=== PATIENT | female | born 1985 | race Caucasian/White ===

== ENCOUNTER 2019-12-18 01:18 | Outpatient (CLI) | payer OTHER, SELFPAY ==
[2019-12-18 10:25] LABS: C-Reactive Protein < 0.05 mg/dL (0.0-0.3)
[2019-12-18 10:33] LABS: ESR 11 mm/hr (0-20)
== END 2019-12-18 01:38 ==
PROVIDERS: PCP Family Medicine; Visit Provider Student in an Organized Health Care Education/Training Program
DX: M00.9 Pyogenic arthritis, unspecified (principal)
CPT/HCPCS: 36415; 85652; 86140

== ENCOUNTER 2020-01-28 03:34 | Outpatient (CLI) | payer OTHER, SELFPAY ==
[2020-01-29 17:43] LABS: SARS-CoV-2 RNA Not Detected (NotDetected); SARS-CoV-2 RNA Source Nasal/Nares
== END 2020-01-28 03:54 ==
PROVIDERS: PCP Family Medicine; Visit Provider Student in an Organized Health Care Education/Training Program
DX: Z01.818 Encounter for other preprocedural examination (principal); S73.199A Other sprain of unspecified hip, initial encounter
CPT/HCPCS: U0003

== ENCOUNTER 2020-01-31 07:13 | Day surgery (SDC) | payer OTHER, SELFPAY ==
[2020-01-31] VITALS (11 sets, daily range): BP systolic 106–127; BP diastolic 61–82; PULSE 65–74; RESP 14–22; TEMP 36.2–36.7; O2SAT 94–100
[2020-01-31] MEDS: Lactated Ringers 1,000 ML 100 ML IV (07:39)
[2020-01-31] MEDS: Bupivacaine 0.25% Pres-Free 30 ML VIAL ×3 (09:56→11:09)
[2020-01-31] MEDS: ceFAZolin 2 GM/50 ML BAG IVPB (10:32)
--- NOTE | 2020-01-31 13:41 | DI.RAD_ITS ---
EXAM: XR HIP LT IN OR CLINICAL HISTORY: left hip arthroscopy TECHNIQUE: 2D and realtime digital imaging was performed. CONTRAST MATERIAL: Refer to procedure report. COMPARISON: No exams were available for comparison FINDINGS: Fluoroscopy was provided for Dr. Thompson during the performance of a left hip arthroscopy. Please ref er to the procedure report for complete details. Fluoro time: 248.2 seconds IMPRESSION: RADIATION DOSE DELIVERED:
--- NOTE | 2020-01-31 14:01 | W.PM.DSUDISC ---
Discharge Plan Disposition Patient Disposition: HOME Condition: Stable Discharge Details Reason For Visit: Left hip surgery Attending Provider: Harpreet Thompson Primary Care Provider: Dale Valladares Home Meds and New Rx's Prescriptions: New aspirin 81 mg tablet,delayed release (DR/EC) 81 mg PO DAILY 14 Days Qty: 14 RF: 0 naproxen 250 mg tablet 250 - 500 mg PO BID PRN (Reason: Moderate pain or swelling) Qty: 60 RF: 0 ondansetron 4 mg tablet,disintegrating 4 mg PO Q6H PRN (Reason: nausea or vomiting) Qty: 5 RF: 0 oxycodone 5 mg tablet 5 - 10 mg PO Q4H PRN (Reason: moderate to severe pain) Qty: 22 RF: 0 Discharge Instructions Additional Instructions: Surgery: Left hip arthroscopy with labral debridement and femoroplasty Activity: Protected weightbearing (50%) with crutches for 6 weeks. May rest foot on ground when standing. Avoid deep hip flexion past 90 degrees for 8 weeks. No cutting, pivoting, or sports for about 2-3 months. A physical therapy prescription will be provided separately in the office at follow-up. Prescriptions: Aspirin 81 mg take 1 daily to prevent a blood clot for 2 weeks Naproxen 250 mg take 1-2 every 12 hours with a meal as needed for moderate pain Oxycodone 5 mg take 1-2 every 4-6 hours as needed for severe pain You may use [id number] Tylenol (acetaminophen) as needed for mild pain. These pain medications may be taken all at once or in different combinations as needed. Also, recommend Colace (docusate) as a stool softener as surgery and pain medicine cause constipation. Dressings: Leave dressing in place for 2-3 days. May then remove and leave open to air or cover incisions with Band-Aids. May shower after 5 days. Follow-up: 10-[address] Thompson (02/12/20 at 9:30 AM) Let us know right away if you develop any redness, drainage, fevers, chest pain, or trouble breathing. Do not drink alcohol or drive for at least 24 hours after anesthesia. Please call the office during business hours with any questions or concerns. Referrals: Harpreet Thompson MD [ [facility]] - Discharge Orders Discharge Orders: Discharge Order (Routine); Ordered 01/31/20 Ordered By: Harpreet Thompson DS: Diagnosis Discharge Diagnosis (1) Labral tear of left hip joint: Status: Acute (2) Femoral acetabular impingement: Status: Acute
--- NOTE | 2020-01-31 14:11 | ROE_ITS ---
Date of service: 01/31/20 Time of Service: 12:15 Operative Note Operative Note DATE OF PROCEDURE: 01/31/20 PRE-OP DIAGNOSIS: 1. Left hip labral tear 2. Left hip femoral acetabular impingement POST-OP DIAGNOSIS: same PROCEDURE: 1. Left hip arthroscopy with labral debridement, CPT #47286 2. Arthroscopic femoroplasty, CPT #03627 SURGEON: Harpreet Thompson PATIENT RELATIONS COORDINATOR: Gela Drew ANESTHESIA: GETA, regional (SAHARA block) and local ESTIMATED BLOOD LOSS: 10 PATHOLOGY: none sent TOURNIQUET TIME: 60 COMPLICATIONS: None Patient was transported to: PACU Patient's condition: stable Implants: None Indications: Please see complete medical record for details. Findings: Significant anterior lateral labral thinning and fraying. Scarring and coalescence with the anterior capsule, which was thickened. Relatively preserved femoral head and acetabular articular cartilage throughout. Significant anterior, medial, and foveal synovitis. Only mild cartilage thinning of the femoral head near the cam lesion. Approximately 5 x 5 x 5 mm bone cyst of the superior anterolateral femoral neck also near the cam lesion. Procedure Description: In the operating room, general and regional anesthesia were induced. The patient was positioned supine on the [place] table. All bony prominences were well-padded. Preoperative antibiotics were administered. Under sterile technique with fluoroscopic guidance a long spinal needle and moderate traction were used to confirm appropriate distraction of the hip joint releasing the suction seal and perform an air arthrogram. Traction was rel eased. The the left hip and thigh were prepped and draped in the usual sterile fashion. The correct patient, procedure, and side of the procedure were all verified prior to incision. Traction was resumed at times. The patient's prior anterior and anterolateral incisions were marked. The anterior lateral incision was used and once to place an 18-gauge spinal needle atraumatically into the hip joint under fluoroscopic guidance. The Nitinol wire was introduced followed by sequential dilators and the camera. Arthroscopy was started dry. Location confirmed to be off the cartilage and not between the labrum and acetabulum. Modified anterior portal was then established using fluoroscopic guidance and needle visualized once the anterolateral portal was redirected in the joint cleared with fluid. This portal was sequentially dilated and a 7 mm cannula introduced. A probe was used with camera to complete diagnostic arthroscopy with relevant findings listed above. The anterior lateral labral tear remnant with fraying was probed and there was any significant tear for repair so was debrided to a stable margin with a mechanical shaver. Anterior lateral and central synovitis was also debrided. Articular cartilage left intact. The viewing and working portals were then switched completing the diagnostic arthroscopy and confirming no additional work to be done in the central compartment. Hip was drained of arthroscopic fluid. The cannula and instruments were removed from the hip and the traction was let down at 60 minutes. The boot leg/foot holders were loosened. The hip was brought into moderate flexion and the arthroscope in the anterolateral portal redirected to the peripheral compartment using fluoroscopic guidance. The modified anterior portal was redirected in a similar fashion. Shaver was used to clear soft tissue as well as the radiofrequency ablator followed by the banana blade completing a limited small capsulotomy over the CAM lesion site. A diagnostic arthroscopy of the peripheral compartment was completed. The paula was then used to perform the femoroplasty resecting excess bone from the articular margin down the femoral neck and debriding with a shaver a bone cyst in this region. Using multiple fluoroscopic views in extension internal rotation, neutral, and external rotation as well as flexion and internal rotation the appropriate amount of bone was removed. There is no more engaging lesion with hip brought into deep flexion and internal rotation. The hip was drained of arthroscopic fluid. 20 cc of 0.25% bupivacaine containing epinephrine was infiltrated about both portal sites followed by closure with 3-0 Monocryl in a buried interrupted fashion. Mastisol Steri-Strips, Xeroform, dry for 4 gauze, and Tegaderms were applied. The patient awoke from anesthesia without complication and was transferred to the recovery room in a stable condition. Abdominal and thigh compartments remain soft. Dorsalis pedis pulse was 2+ with a regular rate and rhythm.
[2020-01-31] MEDS: EPINEPHrine 1 MG/ML AMP pres-free (14:24)
[2020-01-31] MEDS: ACETAMINOPHEN 1,000 MG/100 ML BTL 400 MG IVPB (14:24)
[2020-01-31] MEDS: Normal Saline Flush 10 ML SYR IV (14:38)
[2020-01-31] MEDS: HYDROmorphone 2 MG/ML VIAL IVP (14:38)
== END 2020-01-31 16:30 | disposition home or self-care (01) ==
PROVIDERS: PCP Family Medicine; Visit Provider Student in an Organized Health Care Education/Training Program
PROC: (CPT 29860; principal; 2020-01-31 09:00)
DX: S73.192A Other sprain of left hip, initial encounter (principal); M25.852 Other specified joint disorders, left hip; X58.XXXA Exposure to other specified factors, initial encounter; M65.88 Other synovitis and tenosynovitis, other site; M85.48 Solitary bone cyst, other site
CPT/HCPCS: 29914; 29862; 76000; 76942; 73501; J0131; J0171; J0690; J1100; J1885; J2001; J2405; J2704; J3475

== ENCOUNTER 2022-06-16 07:34 | Day surgery (SDC) | payer OTHER, SELFPAY ==
--- NOTE | 2022-06-15 20:18 | W.PM.DSUDISC ---
Date of service: 06/16/22 Time of Service: 09:27 Discharge Plan Disposition Patient Disposition: Home Condition: Good Discharge Details Attending Provider: Bennie Holman Primary Care Provider: Dale Valladares Home Meds and New Rx's Prescriptions: Continued Mirena 20 mcg/24 hours (7 yrs) 52 mg intrauterine device 1 device intrauterine ONCE Rx Instructions: as a single dose buspirone 10 mg tablet 10 mg PO BID Discontinued bisacodyl [Dulcolax (bisacodyl)] 5 mg tablet,delayed release (DR/EC) 5 mg PO ONCE Qty: 4 0RF Rx Instructions: Take according to provider's instructions for colonoscopy prep. polyethylene glycol 3350 17 gram/dose powder 17 g PO ONCE Qty: 238 0RF Rx Instructions: To be taken as directed by prescriber's office for colonoscopy prep. Discharge Instructions Instructions: Diverticulosis (GEN) Additional Instructions: Vandana, we were able to complete your colonoscopy without any difficulty today. The quality of your preparation was excellent, and we had great visualization. I did not see any signs of tumors or polyps. I did see 1 single colonic diverticula. I would not worry about this at all. I have attached some information here regarding diverticulosis. However, to be clear, with 1 single diverticula, I would not consider you a patient with actual diverticulosis. Like we talked about beforehand, based on your family history, the recommendation is still to have a colonoscopy every 5 years, but I would encourage you to explore that recommendation with your primary care doctor as well. 1. If tolerated, consume a soft, low fiber diet for 1-2 days. 2[address] Do not drive, drink alcohol, operate machinery, make critical decisions, or do activities that require coordination or balance for 24 hours. 3. Because air was put into your colon during the procedure, expelling air from your rectum (passing gas or farting) is normal. 4. You may not have a bowel movement for 1-3 days because of the colonoscopy prep. This is normal. 5. Go directly to the emergency room if you notice any of the following: Develop chills (warm to touch), or if you have a thermometer and your temperature is above 101 Difficulty breathing or difficultly swallowing Persistent vomiting Severe abdominal pain, other than gas cramps Severe chest pain Black, tarry stools Any bleeding ? exceeding one tablespoon 6. Call your physician if the site where your intravenous was started becomes red, swollen, painful, and warm to touch. 7. Your physician has reviewed your pre-procedure medications. Please continue to take those medications as previously ordered. You will be given specific information/education regarding any changes to your medications before leaving. Activity:: Activity as Tolerated Diet:: As Tolerated Discharge Orders Discharge Orders: Discharge Order (Routine); Ordered 06/15/22 Ordered By: Bennie Holman DS: Diagnosis Discharge Diagnosis (1) Family history of colon cancer: Status: Acute Asessment and Plan: Normal colonoscopy today. I recommend a follow-up in 5 years based on family history
--- NOTE | 2022-06-15 20:19 | W.COLOREPORT ---
Date of service: 06/16/22 Time of Service: 09:29 Colonoscopy Report Date of procedure: 06/16/22 Pre-op diagnosis general: screening colonoscopy Post-op diagnosis procedure note: other (Negative screening colonoscopy) Procedure: Colonoscopy Surgeon: Bennie Holman Anesthesia Type: General:No Airway Estimated blood loss (mL): 0 Pathology: none sent Complications: None Disposition: same day Indications: Vandana is a 36 year old woman with 3 second dregree relatives with colon cancer. She is followign up for her next screening colonoscopy Prep: Miralax/Dulcolax Procedure Start Time: 09:05 Procedure End Time: 09:18 Retraction Time: 8 Findings: Normal screening colonoscopy Procedure Description: After the induction of monitored anesthetic care, and with the patient in left lateral decubitus position, I began by performing an external anorectal exam.? Perineum and skin were normal, as was the anal verge.? There is an inflamed external hemorrhoid.? Next, I performed a digital rectal exam.? I did not appreciate any abnormal findings.? Next, I advanced a colonoscope into the rectal vault.? I performed retroflexion.? This appeared normal.? Using insufflation, I then advanced the colonoscope beyond the rectal folds and into the sigmoid colon before advancing towards the cecum.? At the junction of the sigmoid colon, and descending colon, there was a single colonic diverticula. The quality of the prep was outstanding.? The scope was noted to be in the cecum by identification of the ileocecal valve and appendiceal orifice.? I then began withdrawing the colonoscope using repeated irrigation as necessary for full evaluation of the colonic mucosa. ?Once the scope was withdrawn to the level of the rectum, great care was taken to examine portions of the rectal folds.? Finally, the scope was withdrawn and the patient was brought to the same-day surgery recovery unit as the anesthetic wore off. ?The findings and instructions were shared with the patient prior to discharge.
[2022-06-16 07:50] VITALS: BP 148/92; PULSE 71; RESP 18; TEMP 36.3; O2SAT 98
[2022-06-16] MEDS: Lactated Ringers 1,000 ML 80 ML IV (08:22)
--- NOTE | 2022-06-16 08:25 | W.ANESPRE ---
General Info Date of Service Date Performed: 06/16/22 Height: 5 ft 9 in Weight: 76 kg Body Mass Index (BMI): 24.7 Surgical Procedure: Operation Date: 06/16/22 09:05 Proposed Procedure Side Surgeon p Cassidy Holman MD Meds Allergies and Home Medications Allergies Allergy/AdvReac Type Severity Reaction Status Date / Time No Known Allergies Allergy Unverified 06/16/22 08:04 Home Medication Medication Instructions Recorded buspirone 10 mg tablet 10 mg PO BID 12/27/21 levonorgestrel 21 mcg/24 hours (8 1 device intrauterine ONCE 12/27/21 yrs) 52 mg intrauterine device (Mirena) Current Visit Medications: Current Medications Generic Name Dose Route Start Last Admin Trade Name Freq PRN Reason Stop Dose Admin Hyoscyamine Sulfate 0.125 mg 06/15/22 20:20 Hyoscyamine 0.125 Mg Sl/Oral/Chew SL 06/16/22 20:19 PRN PRN Ringer's Solution 1,000 mls @ 80 mls/hr 06/16/22 06:00 06/16/22 08:22 IV 07/15/22 23:59 80 mls/hr INFUSION TAY Administration IV Miscellaneous Supplies 1 each 06/16/22 06:00 Iv Access IV 07/15/22 23:59 DIRECTED TAY Ondansetron HCl 4 mg 06/15/22 20:20 Ondansetron 4 Mg/2 Ml Vial IVP Q4H PRN PRN Nausea / Vomiting Sodium Chloride 0 ml 06/16/22 06:00 Normal Saline Flush 10 Ml Syr IV 07/15/22 23:59 PRN PRN Sodium Chloride 0 ml 06/16/22 06:00 Normal Saline 10 Ml Vial IJ 07/15/22 23:59 DIRECTED PRN Sterile Water 0 ml 06/16/22 06:00 Water,Injection,Sterile 10 Ml Vial IJ 07/15/22 23:59 DIRECTED PRN PFSH Active Problems Active Problems: Problem Status Onset Code Fatigue R53.83 Arthralgia M25.50 Generalized anxiety disorder F41.1 Family history of colon cancer Z80.0 Screening for colon cancer Z12.11 Labral tear of left hip joint S73.192A Femoral acetabular impingement M25.859 Medical History Medical History Hx of Fibroids Hx of Frequent UTI's Surgical History Surgical History section (11/07/12) History of colonoscopy (~2016) History of hip surgery Tobacco Smoking/Tobacco Use Status: Never Alcohol Alcohol Intake: current Alcohol intake frequency: 0-2 drinks per day Substance Use Substance use: Daily Substance use type: marijuana Vital Signs and Lab Results Vital Signs Most Recent Vital Signs in EMR: Most Recent Vital Signs Temp Pulse Resp BP Pulse Ox 36.3 C L 71 18 148/92 H 98 06/16/22 07:50 06/16/22 07:50 06/16/22 07:50 06/16/22 07:50 06/16/22 07:50 Lab Results Blood Type / Crossmatch: No Data to Display Complete Blood Count: No Data to Display Complete Metabolic Panel: No Data to Display Liver Function Panel: No Data to Display Coagulation Panel: No Data to Display Cardiac Panel: No Data to Display Arterial Blood Gas: No Data to Display Venous Blood Gas: No Data to Display Pancreas Panel: No Data to Display Thyroid Panel: No Data to Display Infectious Disease: No Data to Display Blood Cultures: No Data to Display Toxicology Panel: No Data to Display Panel: No Data to Display Anesthesia Assessment and Plan Anesthesia History Personal History: No History of Anesthesia Complications Family History: No Family History of Anesthesia Complications Exercise Tolerance Exercise Tolerance: Metabolic Equivalents>4 Pertinent Negatives Pertinent Negatives: No Symptoms of GERD Cardiac & Pulmonary Exam Cardiac Exam: Normal S1/S2 Heart Sounds Pulmonary Exam: Clear Bilateral Breath Sounds Implantable Cardiac Device Does patient have a Pacemaker or an ICD?: No Airway Exam Known Difficult Airway: No Mallampati Class: 1 Mouth Opening: Normal (> 3cm) Thyromental Distance: Greater than 3 cm Neck Range of Motion: Full ROM Neck Circumference: Normal Teeth Condition: Normal Dentition ASA Classification ASA Score: ASA 1 Emergency Case?: No NPO Status NPO Status: NPO Clears >2 hours, Solids >8 hours Status Status: Not Relevant due to Medical History Anesthesia Plan Resuscitation Status: Full Code Anesthesia Technique: General Anesthesia Airway Planned: Natural Airway Monitors Used: Standard Monitors
[2022-06-16 08:28] VITALS: BMI 24.7
[2022-06-16 09:24] VITALS: BP 139/92; PULSE 83; RESP 18; TEMP 37; O2SAT 96
--- NOTE | 2022-06-16 09:35 | W.ANESPOSTOP ---
Postoperative Evaluation Date, Time and Location Date Performed: 06/16/22 Time Performed: 09:35 Patient Location: Day Surgery Unit Vital Signs Most Recent Imported Vital Signs: Most Recent Vital Signs Temp Pulse Resp BP Pulse Ox 37 C 83 18 139/92 H 96 06/16/22 09:24 06/16/22 09:24 06/16/22 09:24 06/16/22 09:24 06/16/22 09:24 Pain Score Most Recent Pain Score: Most Recent Pain Score Pain Level 0 06/16/22 09:24 Assessment Mental Status: Awake (Alert & Oriented to Patient Baseline) Airway and Respiratory Function: Patent airway with normal (patient baseline) respiratory exam Cardiovascular Function: Hemodynamically Stable Hydration Status: Adequately Hydrated Nausea & Vomiting: No Nausea or Vomiting Pain: Pt. Denies Any Pain Peripheral Nerve Block: Patient did not receive a nerve block
[2022-06-16 10:05] VITALS: BP 124/88; PULSE 56; RESP 18; TEMP 37; O2SAT 100
== END 2022-06-16 10:13 | disposition home or self-care (01) ==
PROVIDERS: PCP Family Medicine; Visit Provider Surgery
PROC: 0DJD8ZZ Inspection of Lower Intestinal Tract, Via Natural or Artificial Opening Endoscopic (ICD-10-PCS; CPT 45378; principal; 2022-06-16 09:00)
DX: Z12.11 Encounter for screening for malignant neoplasm of colon (principal); Z80.0 Family history of malignant neoplasm of digestive organs
CPT/HCPCS: 45378; 81025

== ENCOUNTER → 2023-05-11 18:06 | Outpatient (CLI) | payer BC, SELFPAY ==
--- NOTE | 2023-05-11 | DI.RAD_ITS ---
Exam(s) XR ELBOW RT COMPLETE EXAM: XR ELBOW RT COMPLETE CLINICAL HISTORY: PAIN RT ELBOW M25.521. TECHNIQUE: 2D digital imaging was performed of the left elbow. Three images were obtained. AP, lat eral and oblique views were obtained. COMPARISON: No exams were available for comparison FINDINGS: BONES: No acute fracture is present. No bony destructive lesion is seen. JOINTS: The elbow is normally aligned. No joint effusion is seen. There is a small spur at the corono id process. SOFT TISSUE: Normal. IMPRESSION: 1. No acute fracture or dislocation. 2. Tiny coronoid process spur. DATA REPOSITORY: RADIATION DOSE DELIVERED:
== END ==
PROVIDERS: PCP Family Medicine; Visit Provider Physician Assistant Medical
DX: M25.521 Pain in right elbow (principal)
CPT/HCPCS: 73080

== ENCOUNTER → 2023-10-12 15:03 | Outpatient (CLI) | payer BC, SELFPAY ==
--- NOTE | 2023-10-12 | DI.RAD_ITS ---
Exam(s) XR CHEST 2V PA LATERAL EXAM: XR CHEST 2V PA LATERAL CLINICAL HISTORY: COUGH, R05.9 TECHNIQUE: 2D digital imaging was performed. Two views. COMPARISON: No exams were available for comparison FINDINGS: HEART: Normal size. Aorta: Not dilated. PULMONARY VASCULATURE: Normal. MEDIASTINUM: Unremarkable. LUNGS: Patchy infiltrate noted in the lingula. PLEURAL SPACE: No pleural effusion or pneumothorax. BONE:Unremarkable for age. SOFT TISSUES: Unremarkable. IMPRESSION: Mild lingular pneumonia. DATA REPOSITORY: RADIATION DOSE DELIVERED:
== END ==
PROVIDERS: PCP Family Medicine; Visit Provider Physician Assistant Medical
DX: R05.9 Cough, unspecified (principal); J18.1 Lobar pneumonia, unspecified organism
CPT/HCPCS: 71046

== ENCOUNTER 2024-05-09 15:03 | Outpatient (REF) | payer BC, SELFPAY ==
[2024-05-09 16:15] LABS: Bacteria Few HPF (Negative); C & S Indicated? C&S Done As Ordered; Crystals Negative HPF (Negative); Epithelial Cells Moderate HPF (Negative); Mucus Negative (Negative)
== END 2024-05-09 15:04 | disposition home or self-care (01) ==
LOC: LBN 15:03
PROVIDERS: PCP Family Medicine; Visit Provider Physician Assistant Medical
DX: R30.0 Dysuria (principal)
CPT/HCPCS: 87077; 81015; 87086; 87186

== ENCOUNTER 2024-10-18 21:07 | Outpatient (REF) | payer BC, SELFPAY ==
[2024-10-18 21:45] LABS: WBC >50 HPF (0-5)
== END 2024-10-18 21:08 | disposition home or self-care (01) ==
LOC: LBN 21:07
PROVIDERS: PCP Family Medicine; Visit Provider Physician Assistant Medical
DX: R30.0 Dysuria (principal)
CPT/HCPCS: 87077; 81015; 87086; 87186